=== PATIENT | female | born 1985 | race Caucasian/White ===

== ENCOUNTER 2017-12-28 18:05 | Emergency (ER) | payer MEDICAID ==
[~2017-12-28] VITALS: Ht 160 cm; Wt 90.5 kg
[2017-12-28 18:12] VITALS: Ht 160 cm; Wt 90.5 kg
[2017-12-28 20:19] VITALS: BP 152/108
== END 2017-12-28 20:48 | disposition home or self-care (01) ==
LOC: ED 18:05
DX: K11.20 Sialoadenitis, unspecified (principal); L40.9 Psoriasis, unspecified; Z90.710 Acquired absence of both cervix and uterus; Z98.890 Other specified postprocedural states
CPT/HCPCS: J0696

== ENCOUNTER 2018-05-20 10:54 | Emergency (ER) | payer OTHER ==
[~2018-05-20] VITALS: Ht 160 cm; Wt 92.1 kg
[2018-05-20 11:10] VITALS: BP 147/101; Ht 160 cm; Wt 92.1 kg
== END 2018-05-20 12:57 | disposition home or self-care (01) ==
LOC: ED 10:54
DX: S39.012A Strain of muscle, fascia and tendon of lower back, initial encounter (principal); Z90.710 Acquired absence of both cervix and uterus; Z98.890 Other specified postprocedural states; X58.XXXA Exposure to other specified factors, initial encounter; Y93.89 Activity, other specified; Y92.89 Other specified places as the place of occurrence of the external cause; Y99.8 Other external cause status
CPT/HCPCS: J1885

== ENCOUNTER 2020-01-13 18:28 | Emergency (ER) | payer OTHER ==
[~2020-01-13] VITALS: Ht 160 cm; Wt 91.2 kg
[2020-01-13 18:39] VITALS: Ht 160 cm; Wt 91.2 kg
[2020-01-13 19:36] LABS: BASOPHIL % 0.5 % (0-2); PLATELET COUNT 384 x10^3mcL (130-400)
[2020-01-13 19:37] LABS: RED CELL DISTRIBUTION WIDTH 19.8 % (11.5-14.5)
[2020-01-13 19:39] LABS: CALCIUM 8.6 mg/dL (8.5-10.1); CHLORIDE SERUM 100 mmol/L (98-107); CREATININE SERUM 0.7 mg/dL (0.6-1.0); GFR1 > 60 mL/min; GLUCOSE SERUM 95 mg/dL (74-106); POTASSIUM SERUM 3.8 mmol/L (3.5-5.1); SODIUM SERUM 136 mmol/L (136-145)
[2020-01-13 19:49] LABS: ALBUMIN 3.6 g/dL (3.4-5.0); ALKALINE PHOSPHATASE 54 U/L (46-116); ALT/SGPT 35 U/L (14-59); TOTAL PROTEIN, SERUM 7.7 g/dL (6.4-8.2)
[2020-01-13 20:16] LABS: BILIRUBIN TOTAL 0.1 mg/dL (0.20-1.00)
[2020-01-13 20:32] LABS: AST/SGOT 32 U/L (15-37)
[2020-01-13 21:57] VITALS: BP 128/72
== END 2020-01-13 21:55 | disposition home or self-care (01) ==
LOC: ED 18:28
PROVIDERS: Specialist
DX: D53.9 Nutritional anemia, unspecified (principal); G43.909 Migraine, unspecified, not intractable, without status migrainosus; N93.8 Other specified abnormal uterine and vaginal bleeding; Z90.710 Acquired absence of both cervix and uterus; Z98.51 Tubal ligation status; Z98.890 Other specified postprocedural states
CPT/HCPCS: J1885; J2405